=== PATIENT | female | born 1955 | race Caucasian/White ===

== ENCOUNTER 2023-07-06 17:58 | Inpatient (IN) | payer OTHER, MEDICAID ==
[~2023-07-06] VITALS: Ht 172.7 cm; Wt 81.6 kg
[2023-07-06 18:31] VITALS: BP 130/76; PULSE 98; RESP 18; TEMP 98; O2SAT 98
[2023-07-06] MEDS ORDERED: cefTRIAXone 1,000 MG in DEXT 5% MINI-BAG PLUS 50 ML IV ONE (18:50)
[2023-07-06 19:46] LABS: BASOPHILS % (AUTO) 0.1 % (0.0-2.0); EOSINOPHILS # (AUTO) 0.3 K/uL (0-0.4); EOSINOPHILS % (AUTO) 2.8 % (0.0-4.0); HEMATOCRIT 28.7 % (36-48); HEMOGLOBIN 9.3 g/dL (12.0-16.0); LYMPHOCYTES % (AUTO) 32.4 % (20.5-51.1); MEAN CORPUSCULAR HEMOGLOBIN 25 pg (27-31); MEAN CORPUSCULAR HGB CONC 32 g/dL (33-37); MEAN CORPUSCULAR VOLUME 77.1 fL (80-94); MONOCYTES # (AUTO) 0.5 K/uL (0.8-1.0); MONOCYTES % (AUTO) 5.8 % (1.7-9.3); NEUTROPHILS # (AUTO) 5.5 K/uL (1.8-7.7); NEUTROPHILS % (AUTO) 58.9 % (42.2-75.2); PLATELET COUNT (AUTO) 501 K/uL (140-450); RED BLOOD CELL COUNT(AUTO) 3.72 MIL/uL (4.20-5.40); RED CELL DISTRIBUTION WIDTH 16.2 % (11.6-13.7); WHITE BLOOD COUNT (AUTO) 9.3 K/uL (4.8-10.8)
[2023-07-06 19:56] LABS: BILIRUBIN,URINE NEGATIVE (NEGATIVE); BLOOD, URINE 3+ (NEGATIVE); LEUKOCYTE ESTERASE ,URINE 2+ (NEGATIVE); NITRITE, URINE NEGATIVE (NEGATIVE); PROTEIN,URINE 3+ (NEGATIVE); UGLUCOSE NEGATIVE (NEGATIVE)
[2023-07-06 19:59] LABS: ALBUMIN 3.1 g/dL (3.4-5.0); ANION GAP 14.6 (8-16); CARBON DIOXIDE 25.8 mmol/L (21-32); CREATININE 2.7 mg/dL (0.6-1.3); POTASSIUM 4.4 mmol/L (3.5-5.1); TOTAL BILIRUBIN 0.2 mg/dL (0.0-1.0); TOTAL PROTEIN, SERUM 7.4 g/dL (6.4-8.2)
[2023-07-06 20:00] LABS: APPEARANCE,URINE CLOUDY (CLEAR); COLOR,URINE AMBER (YELLOW)
[2023-07-06] MEDS ORDERED: cefTRIAXone 1,000 MG VIAL ONE (20:05)
[2023-07-06 20:07] LABS: LACTIC ACID 0.8 mmol/L (0.4-2.0)
[2023-07-06 20:10] LABS: BACTERIA,URINE >30 (MANY) /HPF (None Seen); SQUAMOUS EPITHELIAL CELL,UR 0-3 (FEW) /LPF (0-3 (FEW))
[2023-07-06 21:15] LABS: FLU A ANTIGEN negative (NEGATIVE); FLU B ANTIGEN NEGATIVE (NEGATIVE)
[2023-07-06] MEDS ORDERED: NACL 0.9% 1,000 ML IV ONE (21:35)
[2023-07-06] MEDS ORDERED: KETOROLAC 30 MG/ML VIAL IVP ONE (21:35)
[2023-07-06] MEDS ORDERED: CIPR500T4 PO (22:06)
[2023-07-06] MEDS ORDERED: IBUP-2213 PO (22:06)
[2023-07-07] VITALS (7 sets, daily range): BP systolic 136; BP diastolic 85; PULSE 74–79; RESP 18; TEMP 98.9; O2SAT 96–100
[2023-07-07] MEDS ORDERED: ZOLPIDEM 5 MG TAB PO PRN (02:25)
[2023-07-07] MEDS ORDERED: guaiFENesin DM 200/20 MG-10 ML 10 ML UDC PO PRN (02:25)
[2023-07-07] MEDS ORDERED: DOCUSATE SODIUM 100 MG GELCAP PO PRN (02:25)
[2023-07-07] MEDS ORDERED: ONDANSETRON 4 MG/2 ML VIAL IM/IVP PRN (02:25)
[2023-07-07] MEDS ORDERED: ACETAMINOPHEN 325 MG TAB PO PRN (02:25)
[2023-07-07] MEDS ORDERED: POTASSIUM CHLORIDE 10 MEQ TABER PO PRN (02:25)
[2023-07-07] MEDS ORDERED: HYDROcodone/APAP 7.5/325 MG 1 TAB PO PRN (02:25)
[2023-07-07] MEDS: NACL 0.9% 1,000 ML IV SCH ×2 (03:22→19:05)
[2023-07-07] MEDS ORDERED: hydrALAZINE 20 MG/ML VIAL IVP STA (04:05)
[2023-07-07] MEDS ORDERED: hydrALAZINE 20 MG/ML VIAL ONE (04:09)
[2023-07-07] MEDS ORDERED: hydrALAZINE 10 MG TAB ONE (04:27)
[2023-07-07] MEDS ORDERED: hydrALAZINE 10 MG TAB PO ONE (04:30)
[2023-07-07] MEDS ORDERED: MULT-2253 PO (05:12)
[2023-07-07] MEDS ORDERED: ACET-10509 PO (05:12)
[2023-07-07] MEDS ORDERED: FAMO-90 PO (05:12)
[2023-07-07] MEDS ORDERED: ACET325C8 PO (05:12)
[2023-07-07] MEDS ORDERED: MAGN400S60 PO (05:12)
[2023-07-07] MEDS ORDERED: CARV12.5 PO (05:12)
[2023-07-07] MEDS ORDERED: AMLO2.5T PO (05:12)
[2023-07-07] MEDS ORDERED: APIX5TAB PO (05:12)
[2023-07-07] MEDS ORDERED: BISA-213 RC (05:12)
[2023-07-07] MEDS ORDERED: NA P135N RC (05:12)
[2023-07-07] MEDS: PANTOPRAZOLE 40 MG TABEC PO SCH (09:00)
[2023-07-07] MEDS ORDERED: MAGNESIUM HYDROXIDE 2400 MG/30 ML UDC PO PRN (10:55)
[2023-07-07] MEDS: carvediloL 12.5 MG TAB PO SCH (21:00)
[2023-07-07] MEDS: APIXABAN 2.5 MG TAB PO SCH (21:00)
[2023-07-07] MEDS ORDERED: cefTRIAXone 1,000 MG VIAL ONE (21:54)
[2023-07-08] VITALS (7 sets, daily range): BP systolic 147–169; BP diastolic 72–92; PULSE 72–86; RESP 17–20; TEMP 98–98.5; O2SAT 98
[2023-07-08] MEDS: FAMOTIDINE 20 MG TAB PO SCH (09:13)
[2023-07-08] MEDS: carvediloL 12.5 MG TAB PO SCH ×2 (09:14→21:33)
[2023-07-08] MEDS: APIXABAN 2.5 MG TAB PO SCH ×2 (09:15→21:34)
[2023-07-08] MEDS: amLODIPine 5 MG TAB PO SCH (09:16)
[2023-07-08] MEDS: PANTOPRAZOLE 40 MG TABEC PO SCH (09:16)
[2023-07-08] MEDS: bisacodyL 10 MG SUPP RC SCH (09:16)
[2023-07-08] MEDS: NACL 0.9% 1,000 ML IV SCH (11:43)
[2023-07-09 04:00] VITALS: PULSE 78
[2023-07-09] MEDS: NACL 0.9% 1,000 ML IV SCH ×2 (04:14→21:10)
[2023-07-09 07:24] LABS: BASOPHILS # (AUTO) 0.1 K/uL (0.00-0.22); BASOPHILS % (AUTO) 0.9 % (0.0-2.0); EOSINOPHILS # (AUTO) 0.2 K/uL (0-0.4); HEMATOCRIT 25.6 % (36-48); HEMOGLOBIN 8.3 g/dL (12.0-16.0); LYMPHOCYTES # (AUTO) 2.6 K/uL (2.5-16.5); LYMPHOCYTES % (AUTO) 33.3 % (20.5-51.1); MEAN CORPUSCULAR HEMOGLOBIN 25 pg (27-31); MEAN CORPUSCULAR HGB CONC 32 g/dL (33-37); MEAN CORPUSCULAR VOLUME 77.6 fL (80-94); MONOCYTES # (AUTO) 0.6 K/uL (0.8-1.0); MONOCYTES % (AUTO) 8.3 % (1.7-9.3); NEUTROPHILS # (AUTO) 4.2 K/uL (1.8-7.7); NEUTROPHILS % (AUTO) 54.5 % (42.2-75.2); PLATELET COUNT (AUTO) 416 K/uL (140-450); RED CELL DISTRIBUTION WIDTH 16.5 % (11.6-13.7); WHITE BLOOD COUNT (AUTO) 7.7 K/uL (4.8-10.8)
[2023-07-09 08:00] VITALS: BP 150/78; PULSE 75; PULSE 78; RESP 18; RESP 20; TEMP 98.5; O2SAT 98
[2023-07-09] MEDS: bisacodyL 10 MG SUPP RC SCH (09:00)
[2023-07-09] MEDS: amLODIPine 5 MG TAB PO SCH (09:05)
[2023-07-09] MEDS: PANTOPRAZOLE 40 MG TABEC PO SCH (09:05)
[2023-07-09] MEDS: carvediloL 12.5 MG TAB PO SCH ×2 (09:06→21:11)
[2023-07-09] MEDS: FAMOTIDINE 20 MG TAB PO SCH (09:06)
[2023-07-09] MEDS: APIXABAN 2.5 MG TAB PO SCH ×2 (09:07→21:12)
[2023-07-09 09:26] LABS: ALBUMIN 2.8 g/dL (3.4-5.0); ANION GAP 16.2 (8-16); CALCIUM 8.4 mg/dL (8.5-10.1); CARBON DIOXIDE 23.1 mmol/L (21-32); CREATININE 2.6 mg/dL (0.6-1.3); POTASSIUM 4.3 mmol/L (3.5-5.1); TOTAL BILIRUBIN 0.2 mg/dL (0.0-1.0); TOTAL PROTEIN, SERUM 6.7 g/dL (6.4-8.2)
[2023-07-09 20:00] VITALS: BP 152/71; PULSE 77; RESP 18; TEMP 99.2; O2SAT 98
[2023-07-10 04:00] VITALS: BP 148/69; PULSE 71; RESP 18; TEMP 99.1; O2SAT 99
[2023-07-10 06:43] LABS: BASOPHILS # (AUTO) 0.1 K/uL (0.00-0.22); EOSINOPHILS # (AUTO) 0.3 K/uL (0-0.4); EOSINOPHILS % (AUTO) 3.7 % (0.0-4.0); HEMATOCRIT 25.1 % (36-48); HEMOGLOBIN 8.2 g/dL (12.0-16.0); LYMPHOCYTES # (AUTO) 2.3 K/uL (2.5-16.5); LYMPHOCYTES % (AUTO) 33.4 % (20.5-51.1); MEAN CORPUSCULAR HEMOGLOBIN 26 pg (27-31); MEAN CORPUSCULAR HGB CONC 33 g/dL (33-37); MEAN CORPUSCULAR VOLUME 77.9 fL (80-94); MONOCYTES # (AUTO) 0.6 K/uL (0.8-1.0); MONOCYTES % (AUTO) 8.6 % (1.7-9.3); NEUTROPHILS # (AUTO) 3.7 K/uL (1.8-7.7); NEUTROPHILS % (AUTO) 53.3 % (42.2-75.2); PLATELET COUNT (AUTO) 374 K/uL (140-450); RED BLOOD CELL COUNT(AUTO) 3.22 MIL/uL (4.20-5.40); RED CELL DISTRIBUTION WIDTH 16.8 % (11.6-13.7); WHITE BLOOD COUNT (AUTO) 6.9 K/uL (4.8-10.8)
[2023-07-10 07:43] LABS: ALBUMIN 2.6 g/dL (3.4-5.0); ANION GAP 13.8 (8-16); CALCIUM 8.7 mg/dL (8.5-10.1); CARBON DIOXIDE 25.5 mmol/L (21-32); CREATININE 2.4 mg/dL (0.6-1.3); POTASSIUM 4.3 mmol/L (3.5-5.1); TOTAL BILIRUBIN 0.1 mg/dL (0.0-1.0); TOTAL PROTEIN, SERUM 6.5 g/dL (6.4-8.2)
[2023-07-10 08:27] VITALS: PULSE 72; RESP 20; O2SAT 99
[2023-07-10] MEDS: bisacodyL 10 MG SUPP RC SCH (09:00)
[2023-07-10] MEDS: PANTOPRAZOLE 40 MG TABEC PO SCH (09:22)
[2023-07-10] MEDS: carvediloL 12.5 MG TAB PO SCH (09:22)
[2023-07-10] MEDS: FAMOTIDINE 20 MG TAB PO SCH (09:22)
[2023-07-10] MEDS: amLODIPine 5 MG TAB PO SCH (09:24)
[2023-07-10] MEDS: APIXABAN 2.5 MG TAB PO SCH (09:35)
[2023-07-10 13:12] VITALS: BP 144/50; PULSE 86; RESP 18; TEMP 99.5
== END 2023-07-10 14:55 | DRG 280 ==
LOC: MED 17:58 → MTU 07-07 02:26
PROVIDERS: ADMIT Student in an Organized Health Care Education/Training Program; ATTEND Student in an Organized Health Care Education/Training Program
DX: I21.4 Non-ST elevation (NSTEMI) myocardial infarction (principal); G93.41 Metabolic encephalopathy; N17.0 Acute kidney failure with tubular necrosis; N39.0 Urinary tract infection, site not specified; Z20.822 Contact with and (suspected) exposure to COVID-19; I12.9 Hypertensive chronic kidney disease with stage 1 through stage 4 chronic kidney disease, or unspecified chronic kidney disease; N18.9 Chronic kidney disease, unspecified; Z88.8 Allergy status to other drugs, medicaments and biological substances; Z79.899 Other long term (current) drug therapy
CPT/HCPCS: 36415; 70450; 71045; 80053; 81001; 83605; 83880; 84484; 85025; 87040; 87081; 87086; 93005; 96365; 99285; J0360; J0696; J7060